=== PATIENT | male | born 1950 | race Caucasian/White ===

== ENCOUNTER 2018-05-23 10:21 | Day surgery (SDC) | payer OTHER ==
[2018-05-22 13:19] VITALS: BMI 28.3
--- NOTE | 2018-05-23 13:51 | HP ---
DATE OF ADMISSION: 05/23/2018 HISTORY OF PRESENT ILLNESS: Patient is a 68-year-old male admitted for prostate vaporization. He does have history of benign prostatic hypertrophy with lower urinary tract symptoms. His postvoid residual is greater than 150 mL. His IPSS is equal to between 18 and 20. The patient does have history of dyslipidemia as well as hypertension. ALLERGIES: He denies any allergies. PHYSICAL EXAMINATION: ABDOMEN: Soft. There is no CVA tenderness. Bladder is soft and nontender. GENITALIA: Atraumatic. Testes are normal in size and consistency. No hernias or hydroceles are elicited. Phallus is normal. Meatus is adequate. RECTAL: Tone is good. Prostate is 3+, smooth, benign, nontender. Saddle sensation is present. Bulbocavernosus reflex is brisk. EXTREMITIES: Reveal full range of motion with no cyanosis, clubbing, or edema. SOCIAL HISTORY: Patient denies ethanolism or tobacco use. IMPRESSION: At present is benign prostatic hypertrophy with lower urinary tract symptoms. PLAN: Cystourethroscopy with possible transurethral vaporization of prostate. Christ [id number]
[2018-05-23] MEDS ORDERED: MIDAZOLAM HCL 2 MG/2 ML SINGLE DOSE VIAL ONE ×2 (13:58→14:19)
[2018-05-23] MEDS ORDERED: ceFAZolin SODIUM 1 GM VIAL IVPB ONE (14:17)
[2018-05-23] MEDS ORDERED: ceFAZolin SODIUM 1 GM VIAL ONE ×2 (14:26→14:27)
[2018-05-23] MEDS ORDERED: DEXAMETHASONE SOD PHOSPHATE 4 MG/1 ML VIAL ONE (15:01)
[2018-05-23] MEDS ORDERED: ACETAMINOPHEN 325 MG TABLET (FP) PO PRN (15:14)
[2018-05-23] MEDS ORDERED: TAMSULOSIN HCL 0.4 MG CAP PO ONE (15:14)
[2018-05-23] MEDS ORDERED: PREGABALIN 50 MG CAPSULE PO ONE (15:17)
--- NOTE | 2018-05-23 15:22 | OP ---
Operative Note - Note: Operative Date: 05/23/18 Pre-Operative Diagnosis: BPH w/ obstruction Operation: TURP/ TUVP Findings: Trilobar hypertrophy w/ obstruction and tribeculated bladder Post-Operative Diagnosis: Same as Pre-op Surgeon: Vidya Thompson Anesthesia: Spinal Specimens Removed: Prostate chips and urine Estimated Blood Loss (mls): 50 Drains & Tubes with Location: [address] 30 cc claire with CBI Drains, Volume Out (mls): 0 Blood Volume Replaced (mls): 0 Operative Report Dictated: Yes
[2018-05-23] MEDS ORDERED: ONDANSETRON 4 MG/2 ML VIAL IVPUSH PRN (16:09)
[2018-05-23] MEDS ORDERED: LACTATED RINGERS SOLUTION 1,000 ML IV SCH (16:15)
[2018-05-23] MEDS ORDERED: PREGABALIN 50 MG CAPSULE ONE (17:14)
[2018-05-23] MEDS: DEXTROSE 5%-0.45% SALINE 1,000 ML IV SCH (19:00)
[2018-05-23] MEDS: oxyCODONE HCL 5 MG TABLET PO PRN (20:25)
[2018-05-23] MEDS: ACETAMINOPHEN 325 MG TABLET (FP) PO PRN (20:27)
[2018-05-23] MEDS: CEPHALEXIN MONOHYDRATE 500 MG CAPSULE (UD) PO SCH (21:57)
[2018-05-23] MEDS ORDERED: ATORVASTATIN CA 20 MG TABLET (FP) PO SCH (22:00)
[2018-05-23] MEDS ORDERED: DOCUSATE SODIUM 100 MG CAPSULE (FP) PO SCH (22:00)
[2018-05-24] MEDS ORDERED: MELATONIN 5 MG TABLETS PO SCH (00:15)
[2018-05-24] MEDS: oxyCODONE HCL 5 MG TABLET PO PRN ×2 (02:10→11:17)
[2018-05-24] MEDS: ACETAMINOPHEN 325 MG TABLET (FP) PO PRN ×2 (02:11→11:18)
[2018-05-24] MEDS: DEXTROSE 5%-0.45% SALINE 1,000 ML IV SCH (03:00)
[2018-05-24] MEDS: CEPHALEXIN MONOHYDRATE 500 MG CAPSULE (UD) PO SCH (06:00)
[2018-05-24 12:10] VITALS: BP 134/56; PULSE 59; TEMP 97.9
--- NOTE | 2018-05-27 18:14 | PATH ---
Cytology Non-Gynecological Report Patient Name: FERN HOFFMAN Med. Rec. #: [id number] /Age/Gender: 1950 (Age: 68) / M Account: [id number] Location: AMBULATORY SURG Taken: 05/23/2018 Received: 05/26/2018 Reported: 05/27/2018 Physicians: Vidya Thompson M.D. Specimen(s) Received URINE VOIDED Clinical History BPH Final Diagnosis URINE FOR CYTOLOGY: SATISFACTORY FOR EVALUATION. NEGATIVE FOR HIGH GRADE UROTHELIAL CARCINOMA. UROTHELIAL FRAGMENTS PRESENT. Comment: Urothelial fragments are suggestive of prior instrumentation, lithiasis, or a low grade papillary neoplasm. Suggest clinical/radiologic correlation. See concurrent material ([id number]). Electronically Signed Marlys Yang M.D. Gross Description Approximately 15 cc of bloody fluid received fresh. One cytofunnel prepared and Pap stained.
--- NOTE | 2018-05-28 16:03 | PATH ---
Surgical Pathology Report Patient Name: FERN HOFFMAN [facility]. Rec. #: [id number] /Age/Gender: 1950 (Age: 68) / M Account: [id number] Location: AMBULATORY SURG Taken: 05/23/2018 Received: 05/26/2018 Reported: 05/28/2018 Physicians: Vidya Thompson M.D. Specimen(s) Received PROSTATE CHIPS Clinical History Hypertrophy of prostate Final Diagnosis PROSTATE TISSUE, TRANSURETHRAL RESECTION OF THE PROSTATE: BENIGN PROSTATE TISSUE SHOWING GLANDULAR AND STROMAL HYPERPLASIA. Electronically Signed Renee Mondragon M.D. Gross Description Received in formalin labeled "prostate tissue," is a 4 g, 5.5 x 4.5 x 0.5 cm aggregate of multiple peñaloza, irregular, firm to rubbery portions of tissue, consistent with prostate tissue. The specimen is entirely submitted in 4 cassettes. /05/26/2018 saudi05/26/2018
--- NOTE | 2018-05-29 18:14 | OP ---
DATE OF OPERATION: 05/23/2018 PREOPERATIVE DIAGNOSES: Prostatic hypertrophy with obstruction and trabeculated bladder. POSTOPERATIVE DIAGNOSES: Prostatic hypertrophy with obstruction and trabeculated bladder. OPERATIVE PROCEDURE: Cystourethroscopy, transurethral resection of prostate, and transurethral vaporization of prostate. ANESTHESIA: Spinal. SURGEON: Vidya Thompson MD DESCRIPTION OF PROCEDURE: Under above-stated anesthesia, patient is prepped and draped in the usual sterile manner, placed in the dorsal lithotomy position. Cystoscopy revealed a normal anterior urethra. Prostatic urethra revealed trilobar hypertrophy of the prostate. There was lateral lobe kissing. The bladder was entered. Urine was collected for culture and sensitivity. Inspection of the bladder revealed a grade 3 trabeculation throughout. No lesions were noted. No calculi were seen. Urethral orifices were within normal limits with efflux of clear urine. The resectoscope, bipolar, was introduced and prostate tissue was resected in the usual fashion by commencing up to 6 o'clock position of the right lateral lobe and moving on to the 12 o'clock position. Same thing was done to the left lateral lobe. Lastly, the median lobe was resected. Hemostasis was secured with electrocoagulation. Prostate chips were evacuated with an [employer] evacuator. A Vaportrode was introduced. Excess tissue was vaporized. No active bleeding was noted. Therefore, the bladder was emptied. The scope was removed. A 24-[place] 3-way 30-mL Jesus with continuous bladder irrigation was commenced. The patient tolerated the procedure well. He returned to the recovery room in good condition. Christ [id number]
== END 2018-05-24 13:20 | disposition home or self-care (01) ==
LOC: JASUSAT 10:21 → JASU-SURG 10:21 → J6S 19:35 → JASUSAT 05-24 13:20
PROVIDERS: ATTEND Urology
PROC: 0VB08ZX Excision of Prostate, Via Natural or Artificial Opening Endoscopic, Diagnostic (ICD-10-PCS; principal; 2018-05-23 12:00)
DX: N40.1 Benign prostatic hyperplasia with lower urinary tract symptoms (principal); N32.89 Other specified disorders of bladder
CPT/HCPCS: 87086; 88108; 88305-TC; 94760